=== PATIENT | male | born 1985 | race Caucasian/White ===

== ENCOUNTER 2018-03-24 03:08 | Inpatient (IN) | payer MEDICAID, SELFPAY ==
[~2018-03-24] VITALS: Ht 170.2 cm; Wt 106.6 kg
[2018-03-24 03:46] LABS: BASOPHILS # (AUTO) 0.02 x10^3/uL (0-0.1); BASOPHILS % (AUTO) 0 % (0-1); EOSINOPHILS % (AUTO) 2 % (1-7); LYMPHOCYTES # (AUTO) 2.29 x10^3/uL (1-3.4); LYMPHOCYTES % (AUTO) 25 % (22-44); MD NO; MEAN CORPUSCULAR HEMOGLOBIN 28.1 pg (27.5-34.5); MEAN CORPUSCULAR VOLUME 82.8 fL (81-97); MEAN PLATELET VOLUME 8.6 fL (7.4-10.4); MONOCYTES # (AUTO) 0.79 x10^3/uL (0.2-0.8); MONOCYTES % (AUTO) 9 % (2-9); NEUTROPHILS # (AUTO) 5.87 x10^3/uL (1.8-6.8); NEUTROPHILS % (AUTO) 64 % (42-75); PLATELET COUNT 310 x10^3/uL (130-400); RED BLOOD COUNT 5.13 x10^6/uL (4.38-5.82); RED CELL DISTRIBUTION WIDTH 13.7 % (9.4-14.8)
[2018-03-24 03:57] LABS: ALANINE AMINOTRANSFERASE 40 U/L (12-78); ALBUMIN 3.1 g/dL (3.4-5.0); ANION GAP 4 mmol/L (5-15); CALCIUM 8.5 mg/dL (8.5-10.1); CHLORIDE 109 mmol/L (98-107)
[2018-03-24 04:00] LABS: ALKALINE PHOSPHATASE 77 U/L (45-117); BILIRUBIN,TOTAL 0.3 mg/dL (0.2-1.0); CREATININE 0.89 mg/dL (0.7-1.3); TOTAL PROTEIN 6.7 g/dL (6.4-8.2)
[2018-03-24] MEDS ORDERED: SODIUM CHLORIDE FLUSH 10ML SYR IVF ONE ×2 (04:00→05:00)
[2018-03-24] MEDS ORDERED: PIPERACILLIN/TAZO/PMX 3.375GM 50 ML ONE (04:51)
[2018-03-24] MEDS: SODIUM CHLORIDE 0.9% 1,000 ML IV SCH ×3 (04:52→17:46)
[2018-03-24] MEDS ORDERED: hydrALAzine 20 MG/ML, 1ML IVPush PRN (05:00)
[2018-03-24] MEDS ORDERED: POLYETHYLENE GLYCOL 17 GM PACKET PO PRN (05:00)
[2018-03-24] MEDS ORDERED: OXYcodone IR 5MG TABLET PO PRN (05:00)
[2018-03-24] MEDS ORDERED: BISACODYL 10 MG SUPP PR PRN (05:00)
[2018-03-24] MEDS ORDERED: ONDANSETRON ODT 4 MG PO PRN (05:00)
[2018-03-24] MEDS ORDERED: ACETAMINOPHEN 325 MG TABLET PO PRN (05:00)
[2018-03-24] MEDS ORDERED: PROMETHAZINE 25 MG/ML, 1ML IM PRN (05:00)
[2018-03-24] MEDS ORDERED: DOCUSATE 100 MG CAPSULE PO PRN (05:00)
[2018-03-24] MEDS ORDERED: ONDANSETRON 2MG/ML, 2ML IVPush PRN (05:00)
[2018-03-24] MEDS ORDERED: PIPERACILLIN/TAZO/PMX 3.375GM 50 ML IV ONE (05:00)
[2018-03-24] MEDS ORDERED: morphine SULFATE 10 MG/ML, 1ML IVPush PRN (05:00)
[2018-03-24] MEDS ORDERED: VANCOMYCIN PMX 1GM/200ML 200 ML IV ONE (05:30)
[2018-03-24] MEDS ORDERED: VANCOMYCIN PER PHARMACY MC PRN (05:30)
[2018-03-24 06:03] LABS: HCT (SEDRATE) 42.1 % (39.2-51.8)
[2018-03-24 06:10] LABS: C-REACTIVE PROTEIN, QUANT 0.31 mg/dL (0.02-0.49)
[2018-03-24 06:16] LABS: HEMOGLOBIN A1C 5.7 % (4.2-6.3)
[2018-03-24 06:20] LABS: FREE T4 (FREE THYROXINE) 0.91 ng/dL (0.76-1.46); THYROID STIMULATING HORMONE 2.12 mIU/L (0.358-3.740)
[2018-03-24 06:48] VITALS: BP 114/71
[2018-03-24 07:00] VITALS: BP 120/72
[2018-03-24] MEDS ORDERED: PHARMACOKINETIC CONSULTATION MC ONE (07:00)
[2018-03-24] MEDS ORDERED: PHARMACOKINETIC MONITORING MC PRN (07:00)
[2018-03-24] MEDS: VANCOMYCIN 2,000 MG in SODIUM CHLORIDE 0.9% 500 ML IV SCH ×2 (08:41→21:26)
[2018-03-24] MEDS: BUSPIRONE 5 MG TABLET PO SCH ×2 (08:42→21:26)
[2018-03-24] MEDS: ARIPIPRAZOLE 10 MG TABLET PO SCH (08:42)
[2018-03-24] MEDS: HEPARIN 5,000 UNITS/ML, 1ML SQ SCH ×2 (08:42→17:00)
[2018-03-24] MEDS: CHOLECALCIFEROL 1,000 UNIT TABLET PO SCH (08:42)
[2018-03-24] MEDS: NICOTINE 7 MG/24 HR PATCH.TD24 TD SCH (08:43)
[2018-03-24] MEDS ORDERED: PANTOPRAZOLE 40 MG IV IVPush SCH ×2 (09:00→19:00)
[2018-03-24] MEDS ORDERED: PIPERACILLIN/TAZO/PMX 3.375GM 50 ML IV SCH (09:00)
[2018-03-24] MEDS ORDERED: GADOBUTROL 10 MMOL/10 ML PFS ONE (11:14)
[2018-03-24] MEDS: OMEPRAZOLE 20 MG CAPSULE.DR PO SCH (12:25)
[2018-03-24] MEDS: PIPERACILLIN/TAZO/PMX 3.375GM 50 ML IV SCH ×2 (12:25→17:46)
[2018-03-24 13:08] VITALS: BP 109/68
[2018-03-24 14:55] LABS: INTERNATIONAL NORMALIZED RATIO 0.98 (0.93-1.1); PROTHROMBIN TIME 10.2 Seconds (9.6-11.5)
[2018-03-24 15:10] LABS: MICROSCOPIC NOT IND
[2018-03-24 15:12] LABS: CULTURE INDICATED? NO
[2018-03-24 16:39] LABS: AMPHETAMINE SCREEN, URINE Negative (Negative); BARBITURATE SCREEN, URINE Negative (Negative); BENZODIAZEPINE SCREEN, URINE Negative (Negative); CANNABINOID SCREEN, URINE Negative (Negative); COCAINE SCREEN, URINE Negative (Negative); METHADONE SCREEN, URINE Negative (Negative); OPIATE SCREEN, URINE Negative (Negative)
[2018-03-24 19:37] VITALS: BP 116/63
[2018-03-25] MEDS: HEPARIN 5,000 UNITS/ML, 1ML SQ SCH ×3 (00:11→17:00)
[2018-03-25] MEDS: PIPERACILLIN/TAZO/PMX 3.375GM 50 ML IV SCH ×4 (00:11→18:11)
[2018-03-25 01:57] VITALS: BP 101/58
[2018-03-25 05:28] LABS: BASOPHILS # (AUTO) 0.06 x10^3/uL (0-0.1); BASOPHILS % (AUTO) 1 % (0-1); EOSINOPHILS # (AUTO) 0.23 x10^3/uL (0-0.4); EOSINOPHILS % (AUTO) 3 % (1-7); LYMPHOCYTES # (AUTO) 2.83 x10^3/uL (1-3.4); LYMPHOCYTES % (AUTO) 31 % (22-44); MD NO; MEAN CORPUSCULAR HEMOGLOBIN 27.9 pg (27.5-34.5); MEAN CORPUSCULAR HGB CONC 33.6 g/dL (33.2-36.2); MEAN CORPUSCULAR VOLUME 83.1 fL (81-97); MEAN PLATELET VOLUME 9.1 fL (7.4-10.4); MONOCYTES # (AUTO) 0.64 x10^3/uL (0.2-0.8); MONOCYTES % (AUTO) 7 % (2-9); NEUTROPHILS # (AUTO) 5.49 x10^3/uL (1.8-6.8); NEUTROPHILS % (AUTO) 59 % (42-75); PLATELET COUNT 293 x10^3/uL (130-400); RED BLOOD COUNT 5.06 x10^6/uL (4.38-5.82); RED CELL DISTRIBUTION WIDTH 13.3 % (9.4-14.8)
[2018-03-25 05:40] LABS: ALANINE AMINOTRANSFERASE 39 U/L (12-78); ANION GAP 4 mmol/L (5-15); CALCIUM 8.3 mg/dL (8.5-10.1); CHLORIDE 110 mmol/L (98-107)
[2018-03-25 05:44] LABS: ALKALINE PHOSPHATASE 78 U/L (45-117); BILIRUBIN,TOTAL 0.3 mg/dL (0.2-1.0); CHOL/HDL RATIO 4.4; CHOLESTEROL, TOTAL 151 mg/dL (140-239); CREATININE 0.82 mg/dL (0.7-1.3); HDL CHOL % 23 % (26-37); HDL CHOLESTEROL (DIRECT) 34 mg/dL (40-60); LDL CHOLESTEROL,CALCULATED 89 mg/dL (54-169); LDL/HDL RATIO 2.6 (0.5-3.0); TOTAL PROTEIN 6.8 g/dL (6.4-8.2); TRIGLYCERIDES 140 mg/dL (50-200); VLDL CHOLESTEROL 28 mg/dL (0-25)
[2018-03-25 07:32] VITALS: BP 120/82
[2018-03-25] MEDS: VANCOMYCIN 2,000 MG in SODIUM CHLORIDE 0.9% 500 ML IV SCH ×2 (08:04→21:42)
[2018-03-25] MEDS: BUSPIRONE 5 MG TABLET PO SCH ×2 (08:20→21:42)
[2018-03-25] MEDS: OMEPRAZOLE 20 MG CAPSULE.DR PO SCH (08:20)
[2018-03-25] MEDS: NICOTINE 7 MG/24 HR PATCH.TD24 TD SCH (08:20)
[2018-03-25] MEDS: ARIPIPRAZOLE 10 MG TABLET PO SCH (08:21)
[2018-03-25] MEDS: CHOLECALCIFEROL 1,000 UNIT TABLET PO SCH (08:21)
[2018-03-25] MEDS ORDERED: MIDAZOLAM 1 MG/ML, 2ML ONE (08:52)
[2018-03-25] MEDS ORDERED: FENTANYL PF 250 MCG/5ML ONE (08:52)
[2018-03-25] MEDS ORDERED: ACETAMINOPHEN 325 MG TABLET PO PRN (09:00)
[2018-03-25] MEDS ORDERED: OXYcodone 5 MG/5 ML ORAL.SOL UDC PO PRN (09:00)
[2018-03-25] MEDS ORDERED: PROMETHAZINE 25 MG/ML, 1ML IV PRN (09:00)
[2018-03-25] MEDS ORDERED: HYDROcodone/APAP 7.5-325MG/15ML UDC PO PRN (09:00)
[2018-03-25] MEDS ORDERED: ONDANSETRON ODT 8 MG PO PRN (09:00)
[2018-03-25] MEDS ORDERED: MORPHINE SULFATE 4 MG/ML, 1ML IVPush PRN (09:00)
[2018-03-25] MEDS ORDERED: PROPOFOL 10 MG/ML, 20ML ONE (09:04)
[2018-03-25] MEDS ORDERED: SUCCINYLCHOLINE 20 MG/ML, 10ML ONE (09:04)
[2018-03-25] MEDS ORDERED: BUPIVACAINE/PF 0.5% ONE (09:20)
[2018-03-25] MEDS ORDERED: EPINEPHRINE 1 MG/ML, 1ML ONE (09:20)
[2018-03-25] MEDS ORDERED: FENTANYL PF 100 MCG/2ML ONE (09:51)
[2018-03-25] MEDS ORDERED: OXYcodone 5 MG/5 ML ORAL.SOL UDC ONE (09:51)
[2018-03-25] MEDS ORDERED: ACETAMINOPHEN 650 MG/20.3 ML UDC ONE (09:51)
[2018-03-25] MEDS: FENTANYL PF 100 MCG/2ML IV PRN ×2 (09:56→10:05)
[2018-03-25 13:16] VITALS: BP 103/66
[2018-03-25] MEDS: KETOROLAC 30 MG/1 ML IVPush PRN ×2 (14:43→22:31)
[2018-03-25 20:44] VITALS: BP 120/79
[2018-03-26 00:13] VITALS: BP 124/75
[2018-03-26] MEDS: PIPERACILLIN/TAZO/PMX 3.375GM 50 ML IV SCH ×4 (00:37→17:21)
[2018-03-26] MEDS: HEPARIN 5,000 UNITS/ML, 1ML SQ SCH ×3 (01:16→17:21)
[2018-03-26 03:54] VITALS: BP 126/83
[2018-03-26 05:11] LABS: ANION GAP 4 mmol/L (5-15); CALCIUM 8.2 mg/dL (8.5-10.1); CHLORIDE 110 mmol/L (98-107); CREATININE 0.85 mg/dL (0.7-1.3)
[2018-03-26] MEDS: KETOROLAC 30 MG/1 ML IVPush PRN ×3 (05:42→21:12)
[2018-03-26 07:00] VITALS: BP 124/80
[2018-03-26] MEDS: CHOLECALCIFEROL 1,000 UNIT TABLET PO SCH (08:07)
[2018-03-26] MEDS: BUSPIRONE 5 MG TABLET PO SCH ×2 (08:07→21:12)
[2018-03-26] MEDS: ARIPIPRAZOLE 10 MG TABLET PO SCH (08:07)
[2018-03-26] MEDS: OMEPRAZOLE 20 MG CAPSULE.DR PO SCH (08:07)
[2018-03-26] MEDS: NICOTINE 7 MG/24 HR PATCH.TD24 TD SCH (08:08)
[2018-03-26] MEDS: VANCOMYCIN 2,000 MG in SODIUM CHLORIDE 0.9% 500 ML IV SCH ×2 (08:08→18:00)
[2018-03-26 14:30] VITALS: BP 119/78
[2018-03-26 20:01] VITALS: BP 155/69
[2018-03-27] MEDS: PIPERACILLIN/TAZO/PMX 3.375GM 50 ML IV SCH ×2 (00:10→05:59)
[2018-03-27] MEDS: HEPARIN 5,000 UNITS/ML, 1ML SQ SCH ×3 (01:47→16:06)
[2018-03-27 01:59] VITALS: BP 109/69
[2018-03-27] MEDS: KETOROLAC 30 MG/1 ML IVPush PRN (03:26)
[2018-03-27] MEDS: VANCOMYCIN 2,000 MG in SODIUM CHLORIDE 0.9% 500 ML IV SCH ×2 (06:41→18:14)
[2018-03-27] MEDS: OMEPRAZOLE 20 MG CAPSULE.DR PO SCH (06:47)
[2018-03-27 08:55] VITALS: BP_SYST 120; BP_SYST 183; BP_DIAS 76; BP_DIAS 78
[2018-03-27] MEDS ORDERED: BUSPIRONE 10 MG TABLET ONE (09:21)
[2018-03-27] MEDS: ARIPIPRAZOLE 10 MG TABLET PO SCH (09:27)
[2018-03-27] MEDS: CHOLECALCIFEROL 1,000 UNIT TABLET PO SCH (09:27)
[2018-03-27] MEDS: BUSPIRONE 5 MG TABLET PO SCH ×2 (09:29→19:26)
[2018-03-27] MEDS: NICOTINE 7 MG/24 HR PATCH.TD24 TD SCH (09:29)
[2018-03-27 14:36] VITALS: BP 112/72
[2018-03-27] MEDS: NAPROXEN 500 MG TABLET PO PRN (16:05)
[2018-03-27 19:56] VITALS: BP 128/85
[2018-03-28] MEDS: HEPARIN 5,000 UNITS/ML, 1ML SQ SCH ×2 (00:59→08:32)
[2018-03-28 01:00] VITALS: BP 115/62
[2018-03-28] MEDS: NAPROXEN 500 MG TABLET PO PRN (05:23)
[2018-03-28] MEDS: VANCOMYCIN 2,000 MG in SODIUM CHLORIDE 0.9% 500 ML IV SCH (06:11)
[2018-03-28 06:53] VITALS: BP 123/81
[2018-03-28] MEDS: ARIPIPRAZOLE 10 MG TABLET PO SCH (08:32)
[2018-03-28] MEDS: CHOLECALCIFEROL 1,000 UNIT TABLET PO SCH (08:32)
[2018-03-28] MEDS: NICOTINE 7 MG/24 HR PATCH.TD24 TD SCH (08:32)
[2018-03-28] MEDS: OMEPRAZOLE 20 MG CAPSULE.DR PO SCH (08:32)
[2018-03-28] MEDS: BUSPIRONE 5 MG TABLET PO SCH (08:35)
[2018-03-28] MEDS ORDERED: BUSPIRONE 10 MG TABLET ONE (08:35)
[2018-03-28] MEDS ORDERED: CHOL10003 PO (11:09)
[2018-03-28] MEDS ORDERED: ARIP10TA33 PO (11:09)
[2018-03-28] MEDS ORDERED: LINE600T37 PO (11:09)
[2018-03-28] MEDS ORDERED: NAPR-856 PO (11:09)
[2018-03-28] MEDS ORDERED: OMEP-110 PO (11:09)
[2018-03-28] MEDS ORDERED: LACT1CAP11 PO (11:13)
[2018-03-28] MEDS ORDERED: BUSP5TAB2 PO (11:21)
== END 2018-03-28 13:30 | disposition home or self-care (01) | DRG 603 ==
LOC: ED 04:24 → EDIP 04:52 → 4NOR 06:27
PROVIDERS: ADMIT Internal Medicine; ATTEND Internal Medicine
PROC: 0J9N3ZZ Drainage of Right Lower Leg Subcutaneous Tissue and Fascia, Percutaneous Approach (ICD-10-PCS; principal; 2018-03-25 09:00)
DX: L02.415 Cutaneous abscess of right lower limb (principal); E44.0 Moderate protein-calorie malnutrition; B95.62 Methicillin resistant Staphylococcus aureus infection as the cause of diseases classified elsewhere; L03.115 Cellulitis of right lower limb; E55.9 Vitamin D deficiency, unspecified; F17.210 Nicotine dependence, cigarettes, uncomplicated; F31.9 Bipolar disorder, unspecified; F41.9 Anxiety disorder, unspecified; K21.9 Gastro-esophageal reflux disease without esophagitis; Z68.36 Body mass index [BMI] 36.0-36.9, adult; Z83.3 Family history of diabetes mellitus; Z90.49 Acquired absence of other specified parts of digestive tract
CPT/HCPCS: 36415; 80048; 80053; 80061; 80202; 80307; 81003; 83036; 83735; 84439; 84443; 85025; 85610; 85651; 86140; 87040; 87070; 87075; 87077; 87186; 87205; 96365; A9585; J0171; J1644; J1885; J2250; J2543; J2704; J3010; J3370; J3490; C9113; J0330; J7030; J7040

== ENCOUNTER 2018-08-07 06:53 | Emergency (ER) | payer MEDICAID ==
[~2018-08-07] VITALS: Ht 170.2 cm; Wt 127.0 kg
[~2018-08-07 06:53] MED LIST: ARIP10TA33 PO; BUSP5TAB2 PO; CHOL10003 PO; LACT1CAP11 PO; LINE600T37 PO; NAPR-856 PO; OMEP-110 PO
[2018-08-07] MEDS ORDERED: ESOM40CA PO (07:16)
[2018-08-07 07:44] LABS: BASOPHILS # (AUTO) 0.05 x10^3/uL (0-0.1); BASOPHILS % (AUTO) 1 % (0-1); EOSINOPHILS # (AUTO) 0.11 x10^3/uL (0-0.4); EOSINOPHILS % (AUTO) 1 % (1-7); LYMPHOCYTES # (AUTO) 1.31 x10^3/uL (1-3.4); LYMPHOCYTES % (AUTO) 16 % (22-44); MD NO; MEAN CORPUSCULAR HEMOGLOBIN 27.7 pg (27.5-34.5); MEAN CORPUSCULAR HGB CONC 34.3 g/dL (33.2-36.2); MEAN CORPUSCULAR VOLUME 80.8 fL (81-97); MEAN PLATELET VOLUME 9.2 fL (7.4-10.4); MONOCYTES # (AUTO) 0.64 x10^3/uL (0.2-0.8); MONOCYTES % (AUTO) 8 % (2-9); NEUTROPHILS # (AUTO) 6.22 x10^3/uL (1.8-6.8); NEUTROPHILS % (AUTO) 75 % (42-75); PLATELET COUNT 207 x10^3/uL (130-400); RED BLOOD COUNT 5.57 x10^6/uL (4.38-5.82); RED CELL DISTRIBUTION WIDTH 13.8 % (9.4-14.8)
[2018-08-07 07:50] LABS: ALANINE AMINOTRANSFERASE 41 U/L (12-78); ALBUMIN 3.4 g/dL (3.4-5.0); ANION GAP 9 mmol/L (5-15); CALCIUM 8.7 mg/dL (8.5-10.1); CHLORIDE 105 mmol/L (98-107)
[2018-08-07 07:53] LABS: ALKALINE PHOSPHATASE 86 U/L (45-117); BILIRUBIN,TOTAL 0.5 mg/dL (0.2-1.0); CREATININE 0.95 mg/dL (0.7-1.3)
[2018-08-07 08:05] VITALS: BP 115/76
== END 2018-08-07 08:38 | disposition home or self-care (01) ==
LOC: ED 08:05
DX: J20.8 Acute bronchitis due to other specified organisms (principal); B97.89 Other viral agents as the cause of diseases classified elsewhere; F41.1 Generalized anxiety disorder; F31.9 Bipolar disorder, unspecified; K21.9 Gastro-esophageal reflux disease without esophagitis; Z90.89 Acquired absence of other organs
CPT/HCPCS: 36415; 71046; 80053; 85025; 93005; 99285